=== PATIENT | female | born 1980 | race Two or more races ===

== ENCOUNTER 2020-11-09 10:30 | Inpatient (IN) | payer OTHER ==
[~2020-11-09] VITALS: Ht 154.9 cm; Wt 104.3 kg
[2020-11-09] MEDS ORDERED: ZESTRIL40 M1 PO (14:41)
[2020-11-09] MEDS ORDERED: JENTADUETO XR1 EAC1 PO (14:41)
[2020-11-09] MEDS ORDERED: LIPITOR40 MG PO (14:42)
[2020-11-09] MEDS ORDERED: HYDROCHLOROTH12.5 MG PO (14:42)
[2020-11-09] MEDS ORDERED: GLIMEPIRIDE4 M1 PO (14:42)
== END 2020-11-18 11:24 | disposition home or self-care (01) | DRG 740 ==
LOC: O/R 11-16 05:24 → OB/GYN 11-16 10:30 → SURG 11-16 16:23
PROVIDERS: ADMIT Obstetrics & Gynecology Gynecologic Oncology; ATTEND Obstetrics & Gynecology Gynecologic Oncology
PROC: 0UT24ZZ Resection of Bilateral Ovaries, Percutaneous Endoscopic Approach (ICD-10-PCS; 2020-11-16)
PROC: 0UB74ZZ Excision of Bilateral Fallopian Tubes, Percutaneous Endoscopic Approach (ICD-10-PCS; 2020-11-16)
PROC: 0TN74ZZ Release Left Ureter, Percutaneous Endoscopic Approach (ICD-10-PCS; 2020-11-16)
PROC: 0TN64ZZ Release Right Ureter, Percutaneous Endoscopic Approach (ICD-10-PCS; 2020-11-16)
PROC: 0UT94ZZ Resection of Uterus, Percutaneous Endoscopic Approach (ICD-10-PCS; principal; 2020-11-16 14:00)
DX: C54.1 Malignant neoplasm of endometrium (principal); D62 Acute posthemorrhagic anemia; N83.02 Follicular cyst of left ovary; N83.01 Follicular cyst of right ovary; I10 Essential (primary) hypertension; E11.9 Type 2 diabetes mellitus without complications